=== PATIENT | male | born 1955 | race Caucasian/White ===

== ENCOUNTER 2018-01-18 06:47 | Day surgery (SDC) | payer OTHER ==
[2018-01-18] VITALS (8 sets, daily range): BP systolic 118–143; BP diastolic 56–74
[~2018-01-18] VITALS: Ht 175.3 cm; Wt 64.9 kg
[2018-01-18] MEDS ORDERED: Dexamethasone 4mg/ml vial ONE (07:12)
[2018-01-18] MEDS ORDERED: BSS 500ml btl ONE (07:12)
[2018-01-18] MEDS ORDERED: Lidocaine 1% MPF 10mg/ml 5ml ONE (07:12)
[2018-01-18] MEDS ORDERED: Sodium Hyaluronate 14 mg/ml 0.85ml ONE (07:12)
[2018-01-18] MEDS ORDERED: Povidone-Iodine 5% opth solution ONE (07:12)
[2018-01-18] MEDS ORDERED: BSS 15ml BTL ONE (07:12)
[2018-01-18] MEDS ORDERED: EPINEPHrine 1mg/1ml Amp ONE (07:12)
[2018-01-18] MEDS ORDERED: Akten 3.5% 1ml Btl ONE (07:16)
[2018-01-18] MEDS ORDERED: Tobradex Opth Susp 2.5ml ONE (07:16)
[2018-01-18] MEDS ORDERED: Flurbiprofen 0.03% Opth Sol 2.5ml ONE (07:16)
[2018-01-18] MEDS ORDERED: Phenylephrine 2.5% Op 2ml Soln ONE (07:16)
[2018-01-18] MEDS ORDERED: Tropicamide 1% Opth 15ml Soln ONE (07:16)
[2018-01-18] MEDS ORDERED: Vigamox Opth Soln 3ml ONE (07:17)
[2018-01-18] MEDS: Akten 3.5% 1ml Btl LEFT EYE SCH ×3 (07:30→07:58)
[2018-01-18] MEDS: Tobradex Opth Susp 2.5ml LEFT EYE SCH ×3 (07:31→07:59)
[2018-01-18] MEDS: Tropicamide 1% Opth 15ml Soln LEFT EYE SCH ×3 (07:31→07:58)
[2018-01-18] MEDS: Vigamox Opth Soln 3ml LEFT EYE SCH ×3 (07:31→07:59)
[2018-01-18] MEDS: Flurbiprofen 0.03% Opth Sol 2.5ml LEFT EYE SCH ×3 (07:31→07:59)
[2018-01-18] MEDS: Phenylephrine 2.5% Op 2ml Soln LEFT EYE SCH ×3 (07:31→07:58)
--- NOTE | 2018-01-18 07:39 | Pre-Procedure Note/Attestation ---
Pre-Procedure Note/Attestation Complete Prior to Procedure Planned Procedure: left Procedure Narrative: cataract extraction with implant left eye Indications for Procedure Pre-Operative Diagnosis: cataract left eye Attestation I attest that I discussed the nature of the procedure; its benefits; risks and complications; and alternatives (and the risks and benefits of such alternatives ), prior to the procedure, with the patient (or the patient's legal data entry representative). I attest that, if there was a reasonable possibility of needing a blood transfusion, the patient (or the patient's legal data entry representative) was given the [facility] standardized written summary, pursuant to the [employer] Blood Safety Act ([place] Health and Safety Code # 1645, as amended). I attest that I re-evaluated the patient just prior to the surgery and that there has been no change in the patient's H&P, except as documented below: Ismael López MD Jan 18, 2018 07:39
[2018-01-18] MEDS ORDERED: LIALDA1.2 GM ORAL (07:40)
[2018-01-18] MEDS ORDERED: MERCAPTOPURINE50 MG PO (07:40)
[2018-01-18] MEDS ORDERED: fentaNYL 100 mcg/2 mL IV ONE (08:30)
[2018-01-18] MEDS ORDERED: Propofol 200mg/20ml IV ONE (08:30)
[2018-01-18] MEDS ORDERED: LR 1000ml ONE (08:30)
[2018-01-18] MEDS ORDERED: NS Irrig 1000ml ONE (08:30)
[2018-01-18] MEDS ORDERED: Sterile Water Irrig 1000ml IRRIG ONE (08:30)
[2018-01-18] MEDS ORDERED: Midazolam 2mg/2ml Inj ONE (08:30)
--- NOTE | 2018-01-18 08:51 | Anethesia Preoperative Eval ---
Anesthesia Pre-op PMH/ROS General Date of Evaluation: Jan 18, 2018 Time of Evaluation: 08:20 Anesthesiologist: Chantale Rossi CRNA ASA Score: ASA 1 Mallampati Score Class I : Soft palate, uvula, fauces, pillars visible Class II: Soft palate, uvula, fauces visible Class III: Soft palate, base of uvula visible Class IV: Only hard plate visible Mallampati Classification: Class II Surgeon: Rene Diagnosis: LEFT eye cataract Surgical Procedure: LEFT cataract extraction, IOL Family History: no anesthesia problems Allergies: Coded Allergies: No Known Allergies (Unverified , 01/17/18) Medications: see eMAR Past Medical History Cardiovascular: Denies: HTN, CAD, [place], valve dz, arrhythmia, other Gastrointestinal/Genitourinary: Reports: GERD, CRI, ESRD, other - polyps Anesthesia Pre-op Phys. Exam Physician Exam Last Vital Signs Date Time Temp Pulse Resp B/P (MAP) Pulse Ox O2 Delivery O2 Flow Rate FiO2 01/18/18 07:45 97.9 59 20 119/71 (87) 96 97.9 01/18/18 07:34 Room Air Airway Exam Mallampati Score: Class II Chantale Rossi CRNA Jan 18, 2018 08:51
--- NOTE | 2018-01-18 08:55 | Brief Operative Note ---
Immediate Post Operative Note Operative Note Pre-op Diagnosis: cataract left eye Procedure: phacoemulsification of cataract with implant left eye Post-op Diagnosis: same as pre-op Surgeon: ismael stinson Applications Intern: none Anesthesiologist: luis perez crna Anesthesia: MAC Specimen: none Complications: none Condition: stable Fluids: none Estimated Blood Loss: none Drains: none Implant(s) used?: Yes Ismael Stinson MD Jan 18, 2018 08:55
--- NOTE | 2018-01-18 09:02 | Immediate Post-Op Evaluation ---
Immediate Post-Op Evalulation Immediate Post-Op Evalulation Date of Evaluation: Jan 18, 2018 Time of Evaluation: 08:59 IV Fluids: LR 500ml Estimated Blood Loss: 0 Urinary Output: n/a Blood Pressure Systolic: 122 Blood Pressure Diastolic: 74 Pulse Rate: 56 Respiratory Rate: 8 O2 Sat by Pulse Oximetry: 99 Temperature (Fahrenheit): 99 Pain Score (1-10): 0 Nausea: No Vomiting: No Complications none Patient Status: awake, reacts Hydration Status: adequate Chantale Rossi CRNA Jan 18, 2018 09:02
--- NOTE | 2018-01-18 09:50 | 48 Hour Post Anesthesia Eval ---
Post Anesthesia Evaluation Procedure: LEFT eye cataract extraction Date of Evaluation: Jan 18, 2018 Time of Evaluation: 09:49 Blood Pressure Systolic: 129 0: 68 Pulse Rate: 58 Respiratory Rate: 18 Temperature (Fahrenheit): 98.6 O2 Sat by Pulse Oximetry: 97 Airway: patent Nausea: No Vomiting: No Pain Intensity: 0 Hydration Status: adequate Cardiopulmonary Status: VSS, no distress Mental Status/LOC: patient returned to baseline Follow-up Care/Observations: none Post-Anesthesia Complications: none Follow-up care needed: ready to discharge Chantale Rossi CRNA Jan 18, 2018 09:50
--- NOTE | 2018-01-18 16:00 | Operative Note - Dictated ---
DATE OF OPERATION: 01/18/2018 PREOPERATIVE DIAGNOSIS: Cataract, left eye. POSTOPERATIVE DIAGNOSIS: Cataract, left eye. PROCEDURE: Phacoemulsification of cataract left eye with placement of posterior chamber intraocular lens. SURGEON: Ismael López M.D. MEASUREMENT SUPERINTENDENT: None. ANESTHESIA: MAC/topical. ANESTHESIOLOGIST: , SPOOLER. INDICATION FOR PROCEDURE: Poor vision, left eye. DESCRIPTION OF FINDINGS: Nuclear sclerotic and posterior subcapsular cataract, left eye. DESCRIPTION OF PROCEDURE: The patient received a topical anesthetic block consisting of 3.5% Akten eye drops. The eye was then prepped and draped in the usual manner. A lid speculum was placed and a Zeiss microscope was positioned. The temporal corneal groove was made with a domingo blade. A SuperSharp blade made a stab incision at the 6 o'clock position. A 0.1 mL of 1% nonpreserved intracameral lidocaine was injected. Healon was instilled into the anterior chamber and a 2.5/2.8 mm trapezoidal domingo blade was used to complete the temporal corneal wound. A cystotome was used to create an anterior capsular flap. Utrata forceps were used to complete the capsulorrhexis. BSS on a cannula was used to hydrodissect the nucleus. The lens nucleus was phacoemulsified in a phaco-fracture technique. Remaining cortical material was removed with the I/A and the posterior capsule was polished with the I/A on Cap vac. Healon was instilled in the capsular bag and anterior chamber, and an Campos foldable one-piece pre-loaded posterior chamber intraocular lens model PCB00, power 20.5 diopter, serial #[id number] was placed in the capsular bag. The I/A tip was used to remove the Healon and position the lens. The wound edge was hydrated with BSS and a blunt-tipped cannula. The wound was checked and found to be watertight. The lid speculum was removed and a drop of TobraDex and Vigamox was placed. A clear plastic shield was taped over the eye. The patient tolerated the procedure well and left the operating room in good condition. Ismael López M.D. ([facility] [place]: LIBBY JOB#: [id number] CC:
== END 2018-01-18 09:55 | disposition home or self-care (01) ==
LOC: SUR 06:47
DX: H25.812 Combined forms of age-related cataract, left eye (principal); L40.9 Psoriasis, unspecified; L57.0 Actinic keratosis; N18.6 End stage renal disease; K21.9 Gastro-esophageal reflux disease without esophagitis; M40.209 Unspecified kyphosis, site unspecified; R01.1 Cardiac murmur, unspecified; E04.1 Nontoxic single thyroid nodule; G89.29 Other chronic pain; M54.9 Dorsalgia, unspecified; D75.89 Other specified diseases of blood and blood-forming organs; M81.0 Age-related osteoporosis without current pathological fracture; Z87.19 Personal history of other diseases of the digestive system; Z85.828 Personal history of other malignant neoplasm of skin
CPT/HCPCS: 66984; J0171; J1100; J2250; J2704; J3010; J7120; V2632; 94003; 94150

== ENCOUNTER 2018-02-22 07:47 | Day surgery (SDC) | payer OTHER ==
[~2018-02-22] VITALS: Ht 175.3 cm; Wt 64.9 kg
[2018-02-22] VITALS (9 sets, daily range): BP systolic 108–135; BP diastolic 52–76
[~2018-02-22 07:47] MED LIST: LIALDA1.2 GM ORAL; MERCAPTOPURINE50 MG PO
[2018-02-22] MEDS ORDERED: BSS 15ml BTL ONE (08:21)
[2018-02-22] MEDS ORDERED: Lidocaine 1% MPF 10mg/ml 5ml ONE (08:21)
[2018-02-22] MEDS ORDERED: Dexamethasone 4mg/ml vial ONE (08:21)
[2018-02-22] MEDS ORDERED: Povidone-Iodine 5% opth solution ONE (08:21)
[2018-02-22] MEDS ORDERED: EPINEPHrine 1mg/1ml Amp ONE (08:21)
[2018-02-22] MEDS ORDERED: BSS 500ml btl ONE (08:21)
[2018-02-22] MEDS ORDERED: Sodium Hyaluronate 14 mg/ml 0.85ml ONE (08:22)
[2018-02-22] MEDS: Akten 3.5% 1ml Btl RIGHT EYE SCH ×3 (08:32→08:50)
[2018-02-22] MEDS: Flurbiprofen 0.03% Opth Sol 2.5ml RIGHT EYE SCH ×3 (08:33→08:50)
[2018-02-22] MEDS: Tropicamide 1% Opth 15ml Soln RIGHT EYE SCH ×3 (08:33→08:50)
[2018-02-22] MEDS: Phenylephrine 2.5% Op 2ml Soln RIGHT EYE SCH ×3 (08:33→08:50)
[2018-02-22] MEDS: Tobradex Opth Susp 2.5ml RIGHT EYE SCH ×3 (08:33→08:50)
[2018-02-22] MEDS: Vigamox Opth Soln 3ml RIGHT EYE SCH ×3 (08:33→08:53)
[2018-02-22] MEDS ORDERED: Midazolam 2mg/2ml Inj ONE ×2 (08:35→09:30)
--- NOTE | 2018-02-22 09:10 | Anethesia Preoperative Eval ---
Anesthesia Pre-op PMH/ROS General Date of Evaluation: Feb 22, 2018 Time of Evaluation: 09:08 Anesthesiologist: Javon ASA Score: ASA 2 Mallampati Score Class I : Soft palate, uvula, fauces, pillars visible Class II: Soft palate, uvula, fauces visible Class III: Soft palate, base of uvula visible Class IV: Only hard plate visible Mallampati Classification: Class II Surgeon: Rene Diagnosis: R eye cataract Surgical Procedure: R eye cataract extraction Anesthesia History: none Family History: no anesthesia problems Allergies: Coded Allergies: No Known Allergies (Unverified , 01/17/18) Medications: see eMAR Past Medical History Cardiovascular: Denies: HTN, CAD, [place], valve dz, arrhythmia, other Pulmonary: Denies: asthma, COPD, [place], other Gastrointestinal/Genitourinary: Reports: GERD - mild, other - h/o UC in remission; Denies: CRI, ESRD Neurologic/Psychiatric: Denies: dementia, CVA, depression/anxiety, TIA, other Endocrine: Denies: DM, hypothyroidism, steroids, other HEENT: Reports: cataract (L), cataract (R); Denies: glaucoma, [place] (L), [place] (R), other Hematology/Immune: Denies: anemia, DVT, bleeding disorder, other Musculoskeletal/Integumentary: Denies: OA, RA, DJD, DDD, edema, other PMH Narrative: as above PSxH Narrative: R eye cataract Anesthesia Pre-op Phys. Exam Physician Exam Last Vital Signs Date Time Temp Pulse Resp B/P (MAP) Pulse Ox O2 Delivery O2 Flow Rate FiO2 02/22/18 08:36 97.3 48 20 115/69 (84) 97 97.3 02/22/18 08:29 Room Air Constitutional: NAD Neurologic: CN 2-12 intact Cardiovascular: RRR, no M/R/G Respiratory: CTA Gastrointestinal: S/NT/ND Airway Exam Mallampati Score: Class II MO: full Neck: flexible ROM: full Teeth: intact Dentures: no upper, no lower Anesthesia Pre-op A/P Labs see chart Studies Pre-op Studies: EKG - NSR Risk Assessment & Plan Assessment: ASA 2 Plan: MAC Status Change Before Surgery: No Pre-Antibiotics Drug: none Armaan Alejandro MD Feb 22, 2018 09:10
[2018-02-22] MEDS ORDERED: LR 1000ml 1,000 ML IVLG SCH (09:11)
[2018-02-22] MEDS ORDERED: DiphenhydrAMINE 50mg/ml Inj IVP PRN (09:15)
[2018-02-22] MEDS ORDERED: fentaNYL 100 mcg/2 mL IV PRN (09:15)
[2018-02-22] MEDS ORDERED: fentaNYL 100 mcg/2 mL IV ONE (09:30)
[2018-02-22] MEDS ORDERED: Sterile Water Irrig 1000ml IRRIG ONE (09:30)
[2018-02-22] MEDS ORDERED: Propofol 200mg/20ml IV ONE (09:30)
[2018-02-22] MEDS ORDERED: LR 1000ml ONE (09:30)
[2018-02-22] MEDS ORDERED: NS Irrig 1000ml ONE (09:30)
--- NOTE | 2018-02-22 09:33 | Pre-Procedure Note/Attestation ---
Pre-Procedure Note/Attestation Complete Prior to Procedure Planned Procedure: right Procedure Narrative: phacoemulsification of cataract with implant right eye Indications for Procedure Pre-Operative Diagnosis: cataract right eye Attestation I attest that I discussed the nature of the procedure; its benefits; risks and complications; and alternatives (and the risks and benefits of such alternatives ), prior to the procedure, with the patient (or the patient's legal b2b sales representative). I attest that, if there was a reasonable possibility of needing a blood transfusion, the patient (or the patient's legal b2b sales representative) was given the [facility] standardized written summary, pursuant to the [employer] Blood Safety Act ([place] Health and Safety Code # 1645, as amended). I attest that I re-evaluated the patient just prior to the surgery and that there has been no change in the patient's H&P, except as documented below: Ismael López MD Feb 22, 2018 09:33
--- NOTE | 2018-02-22 10:07 | Brief Operative Note ---
Immediate Post Operative Note Operative Note Pre-op Diagnosis: cataract right eye Procedure: phacoemulsification of cataract with implant right eye Post-op Diagnosis: same as pre-op Surgeon: ismael stinson Tile Edger: none Anesthesiologist: gil becker md Anesthesia: MAC Specimen: none Complications: none Condition: stable Fluids: none Estimated Blood Loss: none Drains: none Implant(s) used?: Yes Ismael Stinson MD Feb 22, 2018 10:07
--- NOTE | 2018-02-22 10:10 | Immediate Post-Op Evaluation ---
Immediate Post-Op Evalulation Immediate Post-Op Evalulation Procedure: R eye cataract extraction with IOL Date of Evaluation: Feb 22, 2018 Time of Evaluation: 10:09 IV Fluids: 300 Blood Products: none Estimated Blood Loss: none Urinary Output: none Blood Pressure Systolic: 123 Blood Pressure Diastolic: 78 Pulse Rate: 56 Respiratory Rate: 20 O2 Sat by Pulse Oximetry: 99 Temperature (Fahrenheit): 98.2 Pain Score (1-10): 1 Nausea: No Vomiting: No Complications none Patient Status: awake, patent, none Hydration Status: adequate Armaan Alejandro MD Feb 22, 2018 10:09
--- NOTE | 2018-02-22 12:24 | 48 Hour Post Anesthesia Eval ---
Post Anesthesia Evaluation Procedure: R eye cataract extraction with IOL Date of Evaluation: Feb 22, 2018 Time of Evaluation: 12:23 Blood Pressure Systolic: 128 0: 64 Pulse Rate: 64 Respiratory Rate: 20 Temperature (Fahrenheit): 97.6 O2 Sat by Pulse Oximetry: 98 Airway: patent Nausea: No Vomiting: No Pain Intensity: 2 Hydration Status: adequate Cardiopulmonary Status: stable Mental Status/LOC: patient returned to baseline Follow-up Care/Observations: n/a Post-Anesthesia Complications: none Follow-up care needed: ready to discharge Armaan Alejandro MD Feb 22, 2018 12:24
--- NOTE | 2018-02-22 19:00 | Operative Note - Dictated ---
DATE OF OPERATION: 02/22/2018 PREOPERATIVE DIAGNOSIS: Cataract, right eye. POSTOPERATIVE DIAGNOSIS: Cataract, right eye. PROCEDURE: Phacoemulsification of cataract, right eye, with placement of posterior intraocular lens. SURGEON: Ismael López M.D. ([facility] [place]) STOCKHOLDER: None. ANESTHESIA: MAC/topical. ANESTHESIOLOGIST: Armaan Alejandro M.D. INDICATION FOR PROCEDURE: Poor vision, right eye. DESCRIPTION OF FINDINGS: Nuclear sclerotic and posterior subcapsular cataract, right eye. DESCRIPTION OF PROCEDURE: The patient received topical anesthetic block consisting of 3.5% Akten eyedrops. The eye was prepped and draped in the usual manner. A lid speculum was placed. An operating Zeiss microscope was positioned. The temporal corneal groove was made with a domingo blade. A SuperSharp blade made a stab incision at the 12 o'clock position. A 0.1 mL of 1% nonpreserved intracameral lidocaine was injected. Healon was instilled into the anterior chamber. A 2.5/2.8 mm trapezoidal domingo blade was used to complete the temporal corneal wound. A cystotome was used to create an anterior capsular flap. Utrata forceps were used to complete the capsulorrhexis. BSS on a cannula was used to hydrodissect the nucleus. The lens nucleus was phacoemulsified in a phaco-fracture technique. Remaining cortical material was removed with the I/A and the posterior capsule was polished with the I/A on Cap vac. Healon was instilled in the capsular bag and anterior chamber, and an Campos foldable one-piece preloaded posterior chamber intraocular lens, model PCB00, power 21.0 diopter, serial number [id number], was placed into the capsular bag. The I/A tip was used to remove the Healon and position the lens. The wound edge was hydrated with BSS and a blunt-tipped cannula. The wound was checked and found to be watertight. The lid speculum was removed. A drop of TobraDex and Vigamox was placed. A clear plastic shield was taped over the eye. The patient tolerated the procedure well and left the operating room in good condition. Ismael López M.D. ([facility]) DR: Yordan JOB#: [id number] CC:
== END 2018-02-22 11:25 | disposition home or self-care (01) ==
LOC: SUR 07:47
DX: H25.811 Combined forms of age-related cataract, right eye (principal); L57.0 Actinic keratosis; L40.9 Psoriasis, unspecified; R01.1 Cardiac murmur, unspecified; E04.1 Nontoxic single thyroid nodule; D75.89 Other specified diseases of blood and blood-forming organs; M81.0 Age-related osteoporosis without current pathological fracture; M40.204 Unspecified kyphosis, thoracic region; K21.9 Gastro-esophageal reflux disease without esophagitis; Z87.19 Personal history of other diseases of the digestive system
CPT/HCPCS: 66984; J0171; J1100; J2250; J2704; J3010; V2632; 94003; 94150